=== PATIENT | female | born 1955 | race Caucasian/White ===

== ENCOUNTER 2016-12-15 13:59 | Emergency (ER) | payer MEDICAID, OTHER ==
[2016-12-15 14:08] VITALS: BP 138/80; PULSE 85; RESP 18; TEMP 98.4
--- NOTE | 2016-12-15 14:28 | ED ---
General Adult HPI - General Chief complaint: [place]lestick/Exposure Stated complaint: [facility] Time Seen by Provider: 12/15/16 14:10 Source: patient, RN notes reviewed Mode of arrival: ambulatory Limitations: no limitations - History of Present Illness Initial comments: 61-year-old female presents emergency Department chief complaint of blood exposure to left eye. Patient states she was taking the cut off of the ultrasound probe and it sprayed out and hit her left eye. Patient states she immediately went to the eye wash station and rinsed her eye multiple times. She states that she is recommended that she removed her contact as well as thoroughly rinsed this. Patient states that there was no other exposure. She is up-to-date on her immunizations. The source is here in the hospital. 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 Patient denies any recent fever, chills, shortness of breath, chest pain, back pain, abdominal pain, nausea vomiting, numbness or tingling, dysuria or hematuria, constipation or diarrhea, headaches or visual changes, or any other current symptoms. - Related Data Allergies Allergy/AdvReac Type Severity Reaction Status Date / Time codeine AdvReac Nausea & Verified 12/15/16 14:24 Vomiting Review of Systems ROS Statement: Those systems with pertinent positive or pertinent negative responses have been documented in the HPI. ROS Other: All systems not noted in ROS Statement are negative. Past Medical History Past Medical History: No Reported History History of Any Multi-Drug Resistant Organisms: None Reported Past Surgical History: Adenoidectomy, Section, Cholecystectomy, Tonsillectomy, Tubal Ligation Additional Past Surgical History / Comment(s): right rotator cuff Past Psychological History: No Psychological Hx Reported Smoking Status: Never smoker Past Alcohol Use History: Occasional Past Drug Use History: None Reported General Exam Limitations: no limitations General appearance: alert, in no apparent distress Head exam: Present: atraumatic, normocephalic, normal inspection Eye exam: Present: normal appearance, PERRL, EOMI. Absent: scleral icterus, conjunctival injection, periorbital swelling ENT exam: Present: normal exam, mucous membranes moist Neck exam: Present: normal inspection. Absent: tenderness, meningismus, lymphadenopathy Respiratory exam: Present: normal lung sounds bilaterally. Absent: respiratory distress, wheezes, rales, rhonchi, stridor Cardiovascular Exam: Present: regular rate, normal rhythm, normal heart sounds. Absent: systolic murmur, diastolic murmur, rubs, gallop, clicks Extremities exam: Present: normal inspection, full ROM, normal capillary refill. Absent: tenderness, pedal edema, joint swelling, calf tenderness Neurological exam: Present: alert, oriented X3 Psychiatric exam: Present: normal affect, normal mood Skin exam: Present: warm, dry, intact, normal color. Absent: rash Course Vital Signs 12/15/16 14:02 Temperature 98.4 F Pulse Rate 85 Respiratory 18 Rate Blood Pressure 138/80 O2 Sat by Pulse 96 Oximetry Medical Decision Making - Medical Decision Making 61-year-old female presents emergency 5 chief complaint of exposure. She thoroughly active washrag the eyewash station. At this time exam is benign. We discussed follow-up for the blood work. We discussed return parameters all the questions very state Dre management plan. All questions have been answered. They will be discharged. Disposition Clinical Impression: Exposure to blood-borne pathogen Disposition: HOME SELF-CARE Condition: Stable Instructions: Body Substance Exposure (ED) Additional Instructions: Please use medication as discussed. Please follow up with family doctor if symptoms have not improved over the next two days. Please return to the emergency room if your symptoms increase or worsen or for any other concerns. Referrals: Yaya Pugh MD [Primary Care Provider] - 1-2 days Time of Disposition: 14:28
== END 2016-12-15 14:44 | disposition home or self-care (01) ==
LOC: EC 13:59
DX: Z77.21 Contact with and (suspected) exposure to potentially hazardous body fluids (principal); Z88.5 Allergy status to narcotic agent; Y92.69 Other specified industrial and construction area as the place of occurrence of the external cause
CPT/HCPCS: 99282

== ENCOUNTER → 2017-03-17 | Outpatient (CLI) | payer MEDICAID ==
[2017-03-17 12:00] LABS: ALT 38 U/L (9-52); AST 29 U/L (14-36); Albumin 4.5 g/dL (3.5-5.0); Alkaline Phosphatase 86 U/L (38-126); Anion Gap 10 mmol/L; Blood Urea Nitrogen 12 mg/dL (7-17); Calcium 9.8 mg/dL (8.4-10.2); Carbon Dioxide 27 mmol/L (22-30); Chloride 106 mmol/L (98-107); Cholesterol 275 mg/dL (<200); Glucose 92 mg/dL (74-99); HDL Cholesterol 58 mg/dL (40-60); LDL Cholesterol,Calculated 179 mg/dL (0-99); Potassium 4.7 mmol/L (3.5-5.1); Sodium 143 mmol/L (137-145); Total Bilirubin 0.4 mg/dL (0.2-1.3); Total Protein 6.9 g/dL (6.3-8.2); Triglycerides 192 mg/dL (<150)
[2017-03-17 12:09] LABS: Basophils # (A) 0.1 k/uL (0-0.2); Basophils % (A) 1 %; Eosinophils # (A) 0.3 k/uL (0-0.7); Eosinophils % (A) 6 %; HCT 43.4 % (34.0-46.0); HGB 13.8 gm/dL (11.4-16.0); Lymphocytes # (A) 1.4 k/uL (1.0-4.8); Lymphocytes % (A) 27 %; MCH 28.8 pg (25.0-35.0); MCHC 31.9 g/dL (31.0-37.0); MCV 90.4 fL (80.0-100.0); Mean Platelet Volume 7.6; Monocytes # (A) 0.4 k/uL (0-1.0); Monocytes % (A) 8 %; Neutrophils # (A) 2.9 k/uL (1.3-7.7); Neutrophils % (A) 56 %; Platelet Count 285 k/uL (150-450); RDW 13.5 % (11.5-15.5); WBC 5.2 k/uL (3.8-10.6)
[2017-03-17 12:16] LABS: T4, Free (Free Thyroxine) 0.77 ng/dL (0.78-2.19)
[2017-03-17 21:42] LABS: Hemoglobin A1C 5.5 % (4.0-6.0)
== END | disposition home or self-care (01) ==
LOC: LABWHC1 10:36
PROVIDERS: ATTEND Internal Medicine
DX: E78.5 Hyperlipidemia, unspecified (principal); E03.9 Hypothyroidism, unspecified; E55.9 Vitamin D deficiency, unspecified; R73.01 Impaired fasting glucose
CPT/HCPCS: 36415; 80053; 80061; 82306; 83036; 84439; 84443; 84481; 85025

== ENCOUNTER → 2017-05-26 | Outpatient (CLI) | payer MEDICAID ==
--- NOTE | 2017-05-26 13:08 | MM ---
Reason for exam: screening (asymptomatic). Last mammogram was performed 1 year and 4 months ago. History: Patient is postmenopausal. Family history of breast cancer in aunt at age 68. Benign cyst aspiration of the left breast, 1985. Physical Findings: Nurse did not find any significant physical abnormalities on exam. MG 3D Screening Mammo W/Cad Bilateral CC and MLO view(s) were taken. Prior study comparison: January 30, 2016, bilateral MG 3d screening mammo w/cad. January 31, 2013, bilateral digital screening mammo w/CAD. There are scattered fibroglandular densities. There are bilateral 2mm masses in the upper outer quadrant on the right breast and upper inner quadrant on the left breast. No suspicious abnormality. No significant changes when compared with prior studies. ASSESSMENT: Benign, BI-RAD 2 RECOMMENDATION: Routine screening mammogram of both breasts in 1 year.
== END | disposition home or self-care (01) ==
LOC: RADMAMWWP 12:12
PROVIDERS: ATTEND Internal Medicine
DX: Z12.31 Encounter for screening mammogram for malignant neoplasm of breast (principal)
CPT/HCPCS: 77063; 77067

== ENCOUNTER → 2019-11-08 | Outpatient (CLI) | payer MEDICAID ==
--- NOTE | 2019-11-08 11:36 | MM ---
Reason for exam: screening (asymptomatic). Last mammogram was performed 2 years and 5 months ago. History: Patient is postmenopausal. Family history of breast cancer in aunt at age 68. Benign cyst aspiration of the left breast, 1985. Physical Findings: A clinical breast exam by your physician is recommended on an annual basis and results should be correlated with mammographic findings. MG 3D Screening Mammo W/Cad Bilateral CC and MLO view(s) were taken. Prior study comparison: May 26, 2017, bilateral MG 3d screening mammo w/cad. January 30, 2016, bilateral MG 3d screening mammo w/cad. There are scattered fibroglandular densities. No significant changes when compared with prior studies. ASSESSMENT: Negative, BI-RAD 1 RECOMMENDATION: Routine screening mammogram of both breasts in 1 year.
== END | disposition home or self-care (01) ==
LOC: RADMAMWWP 11:12
PROVIDERS: ATTEND Nurse Practitioner Adult Health
DX: Z12.31 Encounter for screening mammogram for malignant neoplasm of breast (principal)
CPT/HCPCS: 77063; 77067

== ENCOUNTER → 2020-05-25 | Outpatient (CLI) | payer MEDICAID ==
[2020-05-25 11:48] LABS: African American GFR (CKD) 78.9 (60.0-200.0); Anion Gap 6.1 mmol/L (4.00-12.00); BUN/Creat Ratio 14.44 Ratio (12.00-20.00); Calcium 9.5 mg/dL (8.7-10.3); Carbon Dioxide 27.9 mmol/L (21.6-31.8); Chol/HDL Ratio 4.08; Potassium 4.5 mmol/L (3.5-5.5)
[2020-05-25 14:57] LABS: Hemoglobin A1C 5.6 % (4.0-6.0)
== END | disposition home or self-care (01) ==
LOC: LABWHC1 06:51
PROVIDERS: ATTEND Nurse Practitioner Adult Health
DX: Z00.00 Encounter for general adult medical examination without abnormal findings (principal); E78.2 Mixed hyperlipidemia; R73.9 Hyperglycemia, unspecified
CPT/HCPCS: 36415; 80048; 80061; 83036; 84443

== ENCOUNTER 2020-12-24 07:31 | Emergency (ER) | payer MEDICAID ==
[2020-12-24 07:37] VITALS: RESP 18; TEMP 98
[2020-12-24] MEDS ORDERED: SODIUM CHLORIDE 0.9% 1,000 ML IV STA (07:54)
[2020-12-24] MEDS ORDERED: KETOROLAC 15 MG/ML 1 ML VIAL IVP STA (07:54)
[2020-12-24] MEDS ORDERED: diphenhydrAMINE 25 MG CAP PO STA (07:55)
[2020-12-24] MEDS ORDERED: PROCHLORPERAZINE INJ 10 MG/2 ML VIAL IVP STA (07:55)
--- NOTE | 2020-12-24 08:07 | ED ---
General Adult HPI - General Chief complaint: Abdominal Pain Stated complaint: headache x3 days Time Seen by Provider: 12/24/20 07:41 Source: patient, RN notes reviewed, old records reviewed Mode of arrival: ambulatory Limitations: no limitations - History of Present Illness Initial comments: Patient is a 65-year-old female with no significant medical prompted presents emergency Department complaining of constipation fro 3 days. She is also complaining of lower abdominal pain in the bilateral quadrants that is crampy in nature and is nonradiating. Denies any urinary complaints or vaginal discharge or bleeding. States she still passing gas and did have a bowel movement that was nonbloody this morning secondary to Fleet enema. Denies any nausea or vomiting except after she took milk of magnesia. Denies any chest pain, shortness of breath, fevers, chills, cough. Patient does endorse a mild 5/10 headache over the last few days as well. She describes as a typical headache that is in a belt distribution around her head. She has no neurological complaints associated with headache. She denies any blurry vision or lightheadedness. Attempted to take some Tylenol this morning with minimal improvement. She otherwise has no acute complaints at this time. She has multiple concerns, first of which the abdominal pain that because she has been snacking more on a granola and nuts, she is concerned for possible diverticulosis or diverticulitis. Denies any fevers or chills. Patient also works in the healthcare industry and due to her headache, she would like a Covid test she can return to work. Patient is vaccinated for COVID. - Related Data Previous Rx's Medication Instructions Recorded Amoxicillin/Potassium Clav 1 tab PO Q12HR 10 Days #20 tab 12/24/20 [Augmentin 875-125 Tablet] Ibuprofen [Motrin] 600 mg PO Q6HR PRN 7 Days #28 tab 12/24/20 Ondansetron Odt [Zofran Odt] 4 mg PO Q8HR PRN 2 Days #6 tab 12/24/20 Allergies Allergy/AdvReac Type Severity Reaction Status Date / Time codeine AdvReac Nausea & Verified 12/24/20 07:37 Vomiting Review of Systems ROS Statement: Those systems with pertinent positive or pertinent negative responses have been documented in the HPI. Review of Systems: CONST: Denies fever EYES: Denies blurry vision ENT: Denies nasal congestion C/V: Denies Chest pain RESP: Denies shortness of breath GI: Endorses abdominal pain : Denies dysuria SKIN: Denies rash. MSK: Denies joint pain. NEURO: Denies headache ROS Other: All systems not noted in ROS Statement are negative. Past Medical History Past Medical History: No Reported History History of Any Multi-Drug Resistant Organisms: None Reported Past Surgical History: Adenoidectomy, Section, Cholecystectomy, Tonsillectomy, Tubal Ligation Additional Past Surgical History / Comment(s): right rotator cuff Past Psychological History: No Psychological Hx Reported Smoking Status: Never smoker Past Alcohol Use History: Occasional Past Drug Use History: None Reported General Exam - General Exam Comments Initial Comments: General: Appears in mild discomfort secondary to abdominal pain. HEAD: Normal with no signs of head trauma. EYES: PERRLA, EOMI, conjunctiva normal, no discharge. ENT: Hearing grossly intact, normal oropharynx. RESPIRATORY: Clear breath sounds bilaterally. No wheezes, rales, or rhonchi. C/V: Regular rate and rhythm. S1 and S2 auscultated, no edema, peripheral pulses 2+ and intact throughout ABD: Soft, nondistended. Patient does have tenderness palpation in the bilateral lower quadrants and suprapubic region. There is no tenderness to palpation upper quadrants. There is no guarding. No peritoneal signs. No rebound tenderness. No CVA tenderness to percussion. No flank tenderness. EXT: Normal range of motion, no obvious deformity SKIN: No rashes or lesions observed on exposed skin. NEURO: Alert and oriented x 4. Cranial nerves II-XII intact. No focal sensory or strength deficits. Limitations: no limitations Course Vital Signs 12/24/20 12/24/20 07:34 09:17 Temperature 98.0 F Pulse Rate 95 Respiratory 18 18 Rate Blood Pressure 124/80 O2 Sat by Pulse 95 Oximetry Medical Decision Making - Medical Decision Making This on the patient's presentation and physical exam, I'm concerned for possible acute intra-abdominal process for the patient. She could be going through about constipation but due to the pain as well as recent nut ingestion, I believe that concern over diverticulosis or diverticulitis is reasonable based on where her pain is located. We discussed and agreed that the patient would like a CT abdomen and pelvis. We will obtain basic laboratory studies. We'll also obtain a urinalysis. Due to the patient's headache, she'll be sent likely treatment with a 1 L fluid bolus, IV Toradol, Compazine as well as by mouth Benadryl she drove today. She was in agreement this plan. We will also obtain a Covid 19 swab so she can return to work on Thursday. She was vaccinated. Patient's laboratory studies are remarkable for a mild leukocytosis of 13. Remainder of her labs are unremarkable. Patient's Covid negative. CT of abdomen and pelvis is remarkable for acute diverticulitis involving the mid and distal sigmoid colon with inflammation and some mild pelvic free fluid which is likely reactive. His no abscess or free air. Findings are also concerning for possible developing fistula and/or cancer which they recommend repeat CT imaging following treatment for diverticulitis. No acute intervention at this time. I discussed the findings with the patient. She is tolerating by mouth intake. I believe it is safer to be discharged home with follow-up with surgery. She was in agreement this plan. She already has follow-up established with Dr. Cruz. Her headache is improved at this time as well. I'll provide her with a dose of Augmentin prior to discharge home. She was in agreement this plan. I will provide the patient with a prescription for Augmentin twice a day for 10 days, David GARCIA. I instructed the patient to follow up with their PCP in the next 3 days. I provided contact information for follow up with Dr. Cruz. I explained that the patient should return to the emergency department if they experience any worsening symptoms. Strict return precautions were discussed with the patient. The patient expressed understanding of these instructions. I answered all questions that the patient had. The patient was discharged home in fair condition with their prescriptions and follow up information. - Lab Data Result diagrams: 12/24/20 08:21 12/24/20 08:21 Lab Results 12/24/20 12/24/20 12/24/20 Range/Units 08:21 08:21 08:21 WBC 13.0 H (3.8-10.6) k/uL RBC 4.78 (3.80-5.40) m/uL Hgb 14.2 (11.4-16.0) gm/dL Hct 43.1 (34.0-46.0) % MCV 90.2 (80.0-100.0) fL MCH 29.8 (25.0-35.0) pg MCHC 33.0 (31.0-37.0) g/dL RDW 12.5 (11.5-15.5) % Plt Count 265 (150-450) k/uL MPV 7.1 Neutrophils % 83 % Lymphocytes % 7 % Monocytes % 7 % Eosinophils % 1 % Basophils % 0 % Neutrophils # 10.8 H (1.3-7.7) k/uL Lymphocytes # 0.9 L (1.0-4.8) k/uL Monocytes # 0.9 (0-1.0) k/uL Eosinophils # 0.1 (0-0.7) k/uL Basophils # 0.0 (0-0.2) k/uL PT 9.7 (9.0-12.0) sec INR 0.9 (<1.2) APTT 23.6 (22.0-30.0) sec Sodium (137-145) mmol/L Potassium (3.5-5.1) mmol/L Chloride (98-107) mmol/L Carbon Dioxide (22-30) mmol/L Anion Gap mmol/L BUN (7-17) mg/dL Creatinine (0.52-1.04) mg/dL Est GFR (CKD-EPI)AfAm (>60 ml/min/1.73 sqM) Est GFR (CKD-EPI)NonAf (>60 ml/min/1.73 sqM) Glucose (74-99) mg/dL Plasma Lactic Acid Carmelo (0.7-2.0) mmol/L Calcium (8.4-10.2) mg/dL Total Bilirubin (0.2-1.3) mg/dL AST (14-36) U/L ALT (4-34) U/L Alkaline Phosphatase (38-126) U/L Total Protein (6.3-8.2) g/dL Albumin (3.5-5.0) g/dL Amylase (30-110) U/L Lipase (23-300) U/L Urine Color Yellow Urine Appearance Clear (Clear) Urine pH 6.0 (5.0-8.0) Ur Specific [place] 1.029 (1.001-1.035) Urine Protein Trace H (Negative) Urine Glucose (UA) Negative (Negative) Urine Ketones Negative (Negative) Urine Blood Negative (Negative) Urine Nitrite Negative (Negative) Urine Bilirubin Negative (Negative) Urine Urobilinogen <2.0 (<2.0) mg/dL Ur Leukocyte Esterase Negative (Negative) Coronavirus (PCR) (Not Detectd) 12/24/20 12/24/20 12/24/20 Range/Units 08:21 08:21 08:21 WBC (3.8-10.6) k/uL RBC (3.80-5.40) m/uL Hgb (11.4-16.0) gm/dL Hct (34.0-46.0) % MCV (80.0-100.0) fL MCH (25.0-35.0) pg MCHC (31.0-37.0) g/dL RDW (11.5-15.5) % Plt Count (150-450) k/uL MPV Neutrophils % % Lymphocytes % % Monocytes % % Eosinophils % % Basophils % % Neutrophils # (1.3-7.7) k/uL Lymphocytes # (1.0-4.8) k/uL Monocytes # (0-1.0) k/uL Eosinophils # (0-0.7) k/uL Basophils # (0-0.2) k/uL PT (9.0-12.0) sec INR (<1.2) APTT (22.0-30.0) sec Sodium 135 L (137-145) mmol/L Potassium 4.4 (3.5-5.1) mmol/L Chloride 105 (98-107) mmol/L Carbon Dioxide 20 L (22-30) mmol/L Anion Gap 10 mmol/L BUN 8 (7-17) mg/dL Creatinine 0.67 (0.52-1.04) mg/dL Est GFR (CKD-EPI)AfAm >90 (>60 ml/min/1.73 sqM) Est GFR (CKD-EPI)NonAf >90 (>60 ml/min/1.73 sqM) Glucose 125 H (74-99) mg/dL Plasma Lactic Acid Carmelo 0.6 L (0.7-2.0) mmol/L Calcium 10.1 (8.4-10.2) mg/dL Total Bilirubin 0.8 (0.2-1.3) mg/dL AST 35 (14-36) U/L ALT 20 (4-34) U/L Alkaline Phosphatase 96 (38-126) U/L Total Protein 7.2 (6.3-8.2) g/dL Albumin 4.2 (3.5-5.0) g/dL Amylase 59 (30-110) U/L Lipase 70 (23-300) U/L Urine Color Urine Appearance (Clear) Urine pH (5.0-8.0) Ur Specific [place] (1.001-1.035) Urine Protein (Negative) Urine Glucose (UA) (Negative) Urine Ketones (Negative) Urine Blood (Negative) Urine Nitrite (Negative) Urine Bilirubin (Negative) Urine Urobilinogen (<2.0) mg/dL Ur Leukocyte Esterase (Negative) Coronavirus (PCR) Not Detected (Not Detectd) Disposition Clinical Impression: Diverticulitis, Headache Disposition: HOME SELF-CARE Condition: Fair Instructions (If sedation given, give patient instructions): Diverticulitis (ED) Prescriptions: Amoxicillin/Potassium Clav [Augmentin 875-125 Tablet] 1 tab PO Q12HR 10 Days #20 tab Ibuprofen [Motrin] 600 mg PO Q6HR PRN 7 Days #28 tab PRN Reason: Pain Ondansetron Odt [Zofran Odt] 4 mg PO Q8HR PRN 2 Days #6 tab PRN Reason: Nausea Is patient prescribed a controlled substance at d/c from ED?: No Referrals: Jordin Cavazos MD [Primary Care Provider] - 1-2 days Jose M Cruz MD [Medical Doctor] - 1-2 days
[2020-12-24 08:40] LABS: Basophils % (A) 0 %; Eosinophils # (A) 0.1 k/uL (0-0.7); Eosinophils % (A) 1 %; HCT 43.1 % (34.0-46.0); HGB 14.2 gm/dL (11.4-16.0); Lymphocytes # (A) 0.9 k/uL (1.0-4.8); Lymphocytes % (A) 7 %; MCH 29.8 pg (25.0-35.0); MCV 90.2 fL (80.0-100.0); Mean Platelet Volume 7.1; Monocytes # (A) 0.9 k/uL (0-1.0); Monocytes % (A) 7 %; Neutrophils # (A) 10.8 k/uL (1.3-7.7); Neutrophils % (A) 83 %; Platelet Count 265 k/uL (150-450); RBC 4.78 m/uL (3.80-5.40); RDW 12.5 % (11.5-15.5)
[2020-12-24 08:43] LABS: Appearance,Urine Clear (Clear); Bilirubin,Urine Negative (Negative); Blood,Urine Negative (Negative); Color,Urine Yellow; Glucose,Urine (UA) Negative (Negative); Ketones,Urine Negative (Negative); Leukocyte Esterase,Urine Negative (Negative); Nitrite,Urine Negative (Negative); Protein,Urine Trace (Negative); Specific Gravity,Urine 1.029 (1.001-1.035); Urobilinogen,Urine <2.0 mg/dL (<2.0)
[2020-12-24 08:51] LABS: INR 0.9 (<1.2); Partial Thromboplastin Time 23.6 sec (22.0-30.0); Prothrombin Time 9.7 sec (9.0-12.0)
[2020-12-24 09:19] LABS: ALT 20 U/L (4-34); AST 35 U/L (14-36); African American GFR (CKD) >90 (>60 ml/min/1.73 sqM); Albumin 4.2 g/dL (3.5-5.0); Alkaline Phosphatase 96 U/L (38-126); Amylase 59 U/L (30-110); Anion Gap 10 mmol/L; Blood Urea Nitrogen 8 mg/dL (7-17); Calcium 10.1 mg/dL (8.4-10.2); Carbon Dioxide 20 mmol/L (22-30); Chloride 105 mmol/L (98-107); Glucose 125 mg/dL (74-99); Lipase 70 U/L (23-300); Non-African American GFR(CKD) >90 (>60 ml/min/1.73 sqM); Potassium 4.4 mmol/L (3.5-5.1); Sodium 135 mmol/L (137-145); Total Bilirubin 0.8 mg/dL (0.2-1.3); Total Protein 7.2 g/dL (6.3-8.2)
--- NOTE | 2020-12-24 09:27 | CT ---
EXAMINATION TYPE: CT abdomen pelvis w con DATE OF EXAM: 12/24/2020 COMPARISON: NONE HISTORY: 65-year-old female Lower abdominal pain with headache TECHNIQUE: Contiguous axial scanning of the abdomen and pelvis following administration of 100 ml Iso hieu 300 IV contrast. Delayed images through the kidneys and coronal/sagittal reconstructions perform ed. CT DLP: 984.8 mGycm Automated exposure control for dose reduction was used. FINDINGS: Heart normal size without pericardial effusion. Strandy atelectasis in the lower lungs. No pleural ef fusion. No focal liver lesion or biliary ductal dilatation. Portal venous system is patent. Cholecystectomy c lips. Adrenal glands, spleen with small anterior splenule, pancreas within normal limits. Bilateral extrarenal pelves. 1 cm cortical cyst medial upper pole left kidney. No dilated small bowel, free fluid, or free air. However, prominent fluid-filled small bowel loops ar e present throughout the abdomen. No mesenteric or retroperitoneal lymphadenopathy. Normal appendix. Mild stool burden. There is sigmoid diverticulosis. Moderate wall thickening involvi ng the mid to distal sigmoid colon with surrounding inflammatory fat stranding and edema. Some linear density projecting posteriorly from the mid sigmoid colon to the anterior margin of the distal sigmo id colon, axial image 70 and 71 and sagittal image 66 reassessed at follow-up. Trace pelvic free fluid likely physiologic. Pelvic phleboliths. Uterus anteverted. Both ovaries are v isualized. No pelvic lymphadenopathy seen. Bones: Mild to moderate degenerative disc disease L5-S1. IMPRESSION: 1. EXAM POSITIVE FOR ACUTE DIVERTICULITIS INVOLVING THE MID AND DISTAL SIGMOID COLON. THERE IS MODERA TE INFLAMMATION AND TRACE PELVIC FREE FLUID WHICH IS LIKELY REACTIVE. NO ABSCESS OR FREE AIR. 2. LINEAR STRANDS AND DENSITY EXTENDING POSTERIORLY FROM THE INFLAMED MID SIGMOID TO THE ANTERIOR MAR GIN OF THE DISTAL SIGMOID (FOR EXAMPLE, SAGITTAL IMAGE 66). RECOMMEND FOLLOW-UP CT AFTER TREATMENT TO EXCLUDE DEVELOPING FISTULA. DIRECT VISUALIZATION WILL ALSO BE RECOMMENDED TO EXCLUDE THE POSSIBILITY AN UNDERLYING INFLAMMATORY COLON CANCER.
[2020-12-24] MEDS ORDERED: AMOXIC-POT CLAV 875-125MG 1 EACH TAB PO STA (09:53)
[2020-12-24 10:55] VITALS: BP 142/75; PULSE 90
== END 2020-12-24 11:00 | disposition home or self-care (01) ==
LOC: EC 07:31
DX: K57.92 Diverticulitis of intestine, part unspecified, without perforation or abscess without bleeding (principal); R51.9 Headache, unspecified; Z20.822 Contact with and (suspected) exposure to COVID-19; Z88.5 Allergy status to narcotic agent; Z90.49 Acquired absence of other specified parts of digestive tract; Z98.51 Tubal ligation status
CPT/HCPCS: 99284; 96374; 96375; 96361; 36415; 80053; 82150; 83605; 83690; 85025; 85610; 85730; 81003; 87635; 74177; J0780; J1885; Q9967

== ENCOUNTER → 2021-02-08 | Outpatient (CLI) | payer MEDICAID ==
--- NOTE | 2021-02-10 18:46 | CT ---
EXAMINATION TYPE: CT abdomen pelvis w con DATE OF EXAM: 02/08/2021 COMPARISON: 12/24/2020 HISTORY: 65 year-old female K57.32, acute diverticulitis TECHNIQUE: Contiguous axial scanning of the abdomen and pelvis following administration of 100 ml Iso hieu 300 IV contrast. Delayed images through the kidneys and coronal/sagittal reconstructions perform ed. CT DLP: 628.9 mGycm Automated exposure control for dose reduction was used. FINDINGS: Heart normal size without pericardial effusion. Dependent atelectasis in the lower lungs. No pleural effusions. No focal liver lesion or biliary ductal dilatation; portal venous system is patent. Adrenal glands, spleen, and pancreas within normal limits. There is a small 1.7 cm diverticulum extending superiorly from the third portion duodenum. Kidneys show bilateral extrarenal pelves. Symmetric uptake and excretion of contrast from both kidney s. Small 8 mm cyst medial upper pole left kidney incidentally noted. No dilated small bowel, free fluid, or free air. A couple small retroperitoneal lymph nodes are uncha nged. Borderline size 7 mm right mesenteric lymph node is unchanged. Normal appendix. Oral contrast progressed to the mid transverse colon. There is moderate stool burden . Interval resolution of the inflammatory changes along the mid to distal sigmoid colon and significant improvement in the previously seen colonic wall thickening. No appreciable fistula tract or suspicio us masslike area of mural thickening is identified. Numerous pelvic phlebolith. Bladder is urine distended. Uterus anteverted. Both ovaries are visualize d. No abnormal fluid collection in the pelvis or pelvic lymphadenopathy. Bones: Mild to moderate degenerative disc disease L5-S1. Mild facet arthropathy lower lumbar spine. IMPRESSION: INTERVAL RESOLUTION OF THE PREVIOUS MID TO DISTAL SIGMOID ACUTE DIVERTICULITIS. THERE IS NO RESIDUAL DISCRETE FISTULOUS COMMUNICATION OR SUSPICIOUS MASSLIKE WALL THICKENING IDENTIFIED.
== END | disposition home or self-care (01) ==
LOC: RADCTMAIN 07:24
PROVIDERS: ATTEND Internal Medicine
DX: K57.32 Diverticulitis of large intestine without perforation or abscess without bleeding (principal)
CPT/HCPCS: 74177; Q9967

== ENCOUNTER 2021-03-05 09:27 | Day surgery (SDC) | payer MEDICAID ==
[2021-02-27 14:43] VITALS: BMI 27.1
[~2021-03-05 09:27] MED LIST: LACTATED RINGERS 1,000 ML IV SCH; LIDOCAINE 1% (10MG/ML) FOR IV START INTRADERMA PRN
[2021-03-05 09:42] VITALS: TEMP 97.8
[2021-03-05] MEDS ORDERED: LACTATED RINGERS 1,000 ML IV ONE (09:42)
[2021-03-05] MEDS ORDERED: PROPOFOL 10 MG/ML 20 ML VIAL IV ONE (10:26)
--- NOTE | 2021-03-05 10:30 | P.GSHP ---
History of Present Illness H&P Date: 03/05/21 Chief Complaint: Diverticulitis, change in bowel habits 65-year-old female here today for colonoscopy. Patient had recent episode of diverticulitis in December. Doing better now. She has had intermittent diarrhea and constipation. Recently found that she was ALLERGIC corn products. She also is having some pain in the left perianal location. She thinks she has a fissure. Last colonoscopy 6 years ago was normal. No family history of colon cancer. Past Medical History Past Medical History: No Reported History Additional Past Medical History / Comment(s): Diverticulosis, sinus infection. Allergic to corn & develops a sinus infection. History of Any Multi-Drug Resistant Organisms: None Reported Past Surgical History: Adenoidectomy, Section, Cholecystectomy, Tonsillectomy, Tubal Ligation Additional Past Surgical History / Comment(s): right rotator cuff Past Anesthesia/Blood Transfusion Reactions: Postoperative Nausea & Vomiting (PONV) Smoking Status: Never smoker - Past Family History Mother Family Medical History: No Reported History Medications and Allergies Home Medications Medication Instructions Recorded Confirmed Type Ascorbic Acid [Vitamin C] 500 mg PO DAILY 02/27/21 02/27/21 History Azithromycin [Zithromax Z-pack (6 0 mg PO DIRECTED 02/27/21 02/27/21 History tabs)] Cholecalciferol [Vitamin D3 (10 1 tab PO DAILY 02/27/21 02/27/21 History Mcg = 400 Iu)] Fish Oil/Dha/Epa [Fish Oil 1,200 1 each PO DAILY 02/27/21 02/27/21 History mg Fish Oil] Ibuprofen [Advil] 200 mg PO Q8HR PRN 02/27/21 02/27/21 History L.acidoph,Paracasei, B.lactis 1 each PO DAILY 02/27/21 02/27/21 History [Probiotic] Vitamin A [Vitamin A (8,000 Units 2,400 mcg PO DAILY 02/27/21 02/27/21 History = 2,400 MCG)] Vitamin E [Vitamin E (1000 Iu = 1,000 unit PO DAILY 02/27/21 02/27/21 History 450 MG)] Allergies Allergy/AdvReac Type Severity Reaction Status Date / Time amoxicillin Allergy Rash/Hives Verified 02/27/21 14:52 corn AdvReac Severe sinus Verified 02/27/21 14:52 infections clavulanic acid AdvReac Rash/Hives Verified 02/27/21 14:52 [From Augmentin] codeine AdvReac Nausea & Verified 02/27/21 14:12 Vomiting steroids Allergy Unknown Uncoded 02/27/21 14:52 Surgical - Exam Vital Signs Temp Pulse Resp BP Pulse Ox 97.8 F 77 18 140/75 99 03/05/21 09:41 03/05/21 09:41 03/05/21 09:41 03/05/21 09:41 03/05/21 09:41 Physical exam: General: Well-developed, well-nourished HEENT: Normocephalic, sclerae nonicteric Abdomen: Nontender, nondistended Extremities: No edema Neuro: Alert and oriented Assessment and Plan (1) Diverticulitis Narrative/Plan: Will proceed with colonoscopy. Current Visit: Yes Status: Acute Code(s): K57.92 - DVTRCLI OF INTEST, PART UNSP, W/O PERF OR ABSCESS W/O BLEED SNOMED Code(s): 911591446
--- NOTE | 2021-03-05 10:52 | P.PCN ---
Date of Procedure: 03/05/21 Procedure(s) Performed: PREOPERATIVE DIAGNOSIS: Diverticulitis POSTOPERATIVE DIAGNOSIS: Extensive diverticulosis with tortuosity PROCEDURE: Colonoscopy ANESTHESIA: MAC SURGEON: Jose M Cruz M.D. SPECIMENS: None ENDOSCOPIC PROCEDURE: The patient was placed on the endoscopy table in the left decubitus position. The Olympus colonoscope was inserted into the anus and passed under direct visualization to the base of the cecum. The appendiceal orifice was visualized. From that point the scope was slowly withdrawn inspecting all surfaces carefully. There were no neoplastic inflammatory or polypoid lesions throughout the cecum, ascending, transverse, descending, sigmoid and rectum. There was extensive left-sided diverticulosis noted with tortuosity. Digital rectal examination was normal. The patient was taken to the recovery room in stable condition per anesthesia guidelines. RECOMMENDATIONS: Resume diet. Follow-up colonoscopy in 10 years.
[2021-03-05 11:01] VITALS: RESP 16
[2021-03-05 11:30] VITALS: BP 130/77; PULSE 64
== END 2021-03-05 11:55 | disposition home or self-care (01) ==
LOC: ORWHC2ENDO 09:27
PROVIDERS: ATTEND Surgery
DX: K57.30 Diverticulosis of large intestine without perforation or abscess without bleeding (principal); R19.7 Diarrhea, unspecified; K59.00 Constipation, unspecified; K62.89 Other specified diseases of anus and rectum; J32.9 Chronic sinusitis, unspecified; Z91.018 Allergy to other foods; Z88.5 Allergy status to narcotic agent; Z88.0 Allergy status to penicillin; Z88.8 Allergy status to other drugs, medicaments and biological substances; Z90.89 Acquired absence of other organs; Z98.891 History of uterine scar from previous surgery; Z90.49 Acquired absence of other specified parts of digestive tract; Z98.51 Tubal ligation status; Z98.890 Other specified postprocedural states
CPT/HCPCS: 45378; J2704

== ENCOUNTER → 2021-05-09 | Outpatient (CLI) | payer MEDICAID ==
--- NOTE | 2021-05-09 13:56 | MM ---
Reason for exam: screening (asymptomatic). Last mammogram was performed 1 year and 6 months ago. History: Patient is postmenopausal. Family history of breast cancer in aunt at age 68. Benign cyst aspiration of the left breast, 1985. Physical Findings: A clinical breast exam by your physician is recommended on an annual basis and results should be correlated with mammographic findings. MG 3D Screening Mammo W/Cad Bilateral CC and MLO view(s) were taken. Prior study comparison: November 08, 2019, bilateral MG 3d screening mammo w/cad. May 26, 2017, bilateral MG 3d screening mammo w/cad. There are scattered fibroglandular densities. There is no discrete abnormality. No significant changes when compared with prior studies. ASSESSMENT: Negative, BI-RAD 1 RECOMMENDATION: Routine screening mammogram of both breasts in 1 year.
== END ==
LOC: RADMAMWWP 11:47
PROVIDERS: ATTEND Family Medicine
DX: Z12.31 Encounter for screening mammogram for malignant neoplasm of breast (principal); Z78.0 Asymptomatic menopausal state; Z80.3 Family history of malignant neoplasm of breast
CPT/HCPCS: 77063; 77067

== ENCOUNTER → 2021-05-15 | Outpatient (CLI) | payer MEDICAID ==
--- NOTE | 2021-05-15 16:54 | BD ---
EXAMINATION TYPE: Axial Bone Density DATE OF EXAM: 05/15/2021 COMPARISON: 2007 CLINICAL HISTORY: 65 years year old Female. ICD-10 CODE: Z78.0 POST ANA LAURA, M85.88 OTHER DISORDER OF B ONE Height: 5'3 Weight: 159 FRAX RISK QUESTIONS: Secondary Osteoporosis: RISK FACTORS HISTORY OF: Family History of Osteoporosis: y Postmenopausal woman: y MEDICATIONS: Additional Medications: Additional History: EXAM MEASUREMENTS: Bone mineral densitometry was performed using the StayNTouch System. Bone mineral density as measured about the Lumbar spine is: ----- L1-L4(G/cm2): 1.020 T Score Values are as follows: ----- L1: -1.6 ----- L2: -2.1 ----- L3: -0.9 ----- L4: -0.8 ----- L1-L4: -1.3 Bone mineral density about the R hip (g/cm2): 0.934 Bone mineral density about the L hip (g/cm2): 0.935 T Score values are as follows: -----R Neck: -0.7 -----L Neck: -0.7 -----R Total: 0.7 -----L Total: 0.6 FRAX%s: The graph provided illustrates a chance for a major osteoporotic fx and a chance for the hips probability for fx in 10 years time. IMPRESSION: Osteopenia (T Score between -2.5 and -1). There is slightly increased risk of fracture and the patient may be considered for treatment. Re-Screen 2-5 years. NOTE: T-SCORE=SD OF THE YOUNG ADULT MEAN.
== END | disposition home or self-care (01) ==
LOC: RADBDWWP 07:39
PROVIDERS: ATTEND Family Medicine
DX: M85.88 Other specified disorders of bone density and structure, other site (principal); Z78.0 Asymptomatic menopausal state
CPT/HCPCS: 77080

== ENCOUNTER 2023-04-11 03:02 | Emergency (ER) | payer MEDICARE, BC ==
[2023-04-11 04:15] VITALS: TEMP 98.3
--- NOTE | 2023-04-11 05:10 | ED ---
General Adult HPI - General Chief complaint: ENT Stated complaint: nasal congestion Time Seen by Provider: 04/11/23 04:00 Source: patient, RN notes reviewed, old records reviewed Mode of arrival: ambulatory Limitations: no limitations - History of Present Illness Initial comments: Patient is a 67-year-old female who presents emergency department complaining of sinus congestion. Symptoms have been present for a few days but states she has a history of chronic sinus congestion as well. Left worse over the last few days but has typical symptoms that are recurrent. Denies any cough, fevers, chills. Denies any sore throat. Denies chest pain. No other acute complaints. I evaluated the patient when she was placed in room. - Related Data Home Medications Medication Instructions Recorded Confirmed Ascorbic Acid [Vitamin C] 500 mg PO DAILY 02/27/21 02/27/21 Azithromycin [Zithromax Z-pack (6 0 mg PO DIRECTED 02/27/21 02/27/21 tabs)] Cholecalciferol [Vitamin D3 (10 1 tab PO DAILY 02/27/21 02/27/21 Mcg = 400 Iu)] Fish Oil/Dha/Epa [Fish Oil 1,200 1 each PO DAILY 02/27/21 02/27/21 mg Fish Oil] Ibuprofen [Advil] 200 mg PO Q8HR PRN 02/27/21 02/27/21 L.acidoph,Paracasei, B.lactis 1 each PO DAILY 02/27/21 02/27/21 [Probiotic] Vitamin A [Vitamin A (8,000 Units 2,400 mcg PO DAILY 02/27/21 02/27/21 = 2,400 MCG)] Vitamin E (Dl,Tocopheryl Acet) 1,000 unit PO DAILY 02/27/21 02/27/21 [Vitamin E (1000 Iu = 450 MG)] Previous Rx's Medication Instructions Recorded Azithromycin [Zithromax] 250 mg PO DAILY 4 Days #4 tab 04/11/23 Allergies Allergy/AdvReac Type Severity Reaction Status Date / Time amoxicillin Allergy Rash/Hives Verified 02/27/21 14:52 corn AdvReac Severe sinus Verified 02/27/21 14:52 infections clavulanic acid AdvReac Rash/Hives Verified 02/27/21 14:52 [From Augmentin] codeine AdvReac Nausea & Verified 02/27/21 14:12 Vomiting steroids Allergy Unknown Uncoded 02/27/21 14:52 Review of Systems ROS Statement: Those systems with pertinent positive or pertinent negative responses have been documented in the HPI. Review of Systems: CONST: Denies fever EYES: Denies blurry vision ENT: Endorses sinus congestion C/V: Denies Chest pain RESP: Denies shortness of breath GI: Denies abdominal pain : Denies dysuria SKIN: Denies rash. MSK: Denies joint pain. NEURO: Denies headache ROS Other: All systems not noted in ROS Statement are negative. Past Medical History Past Medical History: No Reported History History of Any Multi-Drug Resistant Organisms: None Reported Past Surgical History: Adenoidectomy, Section, Cholecystectomy, Tonsillectomy, Tubal Ligation Additional Past Surgical History / Comment(s): right rotator cuff Past Psychological History: No Psychological Hx Reported Smoking Status: Never smoker General Exam - General Exam Comments Initial Comments: General: Appears in no acute distress. HEAD: Normal with no signs of head trauma. EYES: EOMI. ENT: Sinus tenderness to palpation bilateral maxillary sinuses. Nasal congestion. No stridor. Posterior oropharynx within acceptable limits. RESPIRATORY: No respiratory distress. No wheeze. Clear breath sounds bilaterally. No hypoxia. C/V: Regular rate and rhythm. ABD: Abdomen is nondistended. EXT: No obvious deformity. SKIN: No rashes or lesions observed on exposed skin. NEURO: Alert and oriented. Limitations: no limitations Course Vital Signs 04/11/23 04/11/23 03:14 05:22 Temperature 98.3 F Pulse Rate 73 75 Respiratory 18 20 Rate Blood Pressure 155/89 159/85 O2 Sat by Pulse 99 99 Oximetry Medical Decision Making - Medical Decision Making Was pt. sent in by a medical professional or institution (, PA, MANAGER OF DATA, urgent care, hospital, or assisted...) When possible be specific @ -No Did you speak to anyone other than the patient for history (EMS, parent, family, police, friend...)? What history was obtained from this source @ -No Did you review nursing and triage notes (agree or disagree)? Why? @ -I reviewed and agree with nursing and triage notes Were old charts reviewed (outside hosp., previous admission, EMS record, old EKG, old radiological studies, urgent care reports/EKG's, assisted records)? Report findings @ -No old charts were reviewed Differential Diagnosis (chest pain, altered mental status, abdominal pain women, abdominal pain men, vaginal bleeding, weakness, fever, dyspnea, syncope, h eadache, dizziness, GI bleed, back pain, seizure, CVA, palpatations, mental health, musculoskeletal)? @ -COVID, flu, RSV, sinus infection. This list is not all inclusive. EKG interpreted by me (3pts min.). @ -None done X-rays interpreted by me (1pt min.). @ -None done CT interpreted by me (1pt min.). @ -None done U/S interpreted by me (1pt. min.). @ -None done What testing was considered but not performed or refused? (CT, X-rays, U/S, labs)? Why? @ -None What meds were considered but not given or refused? Why? @ -I offered steroids which were declined. Did you discuss the management of the patient with other professionals (professionals i.e. , PA, MANAGER OF DATA, lab, RT, psych nurse, social sciences lecturer, certified forklift operator, teacher, media liaison officer, pillowcase cutter)? Give summary @ -No Was smoking cessation discussed for >3mins.? @ -No Was critical care preformed (if so, how long)? @ -No Were there social determinants of health that impacted care today? How? (Homelessness, low income, unemployed, alcoholism, drug addiction, transportation, low edu. Level, literacy, decrease access to med. care, custodial, rehab)? @ -No Was there de-escalation of care discussed even if they declined (Discuss DNR or withdrawal of care, Hospice)? DNR status @ -No What co-morbidities impacted this encounter? (DM, HTN, Smoking, COPD, CAD, Cancer, CVA, ARF, Chemo, Hep., AIDS, mental health diagnosis, sleep apnea, morbid obesity)? @ -None Was patient admitted / discharged? Hospital course, mention meds given and route, prescriptions, significant lab abnormalities, going to OR and other pertinent info. @ -Patient presents with acute on chronic sinus congestion. Also has a mild cough with rhinorrhea. Vital signs within acceptable limits. Viral swabs negative. I believe it is safer to be discharged home at this time. Diagnosis is URI. She will be placed on a Z-Tan. She was in agreement this plan. I will provide the patient with a prescription for azithromycin. I instructed the patient to follow up with their PCP in the next 1-3 days. I explained that the patient should return to the emergency department if they experience any worsening symptoms. Strict return precautions were discussed with the patient. The patient expressed understanding of these instructions. I answered all questions that the patient had. The patient was discharged home in good condition with their prescriptions and follow up information. Undiagnosed new problem with uncertain prognosis? @ -No Drug Therapy requiring intensive monitoring for toxicity (Heparin, Nitro, Insulin, Cardizem)? @ -No Were any procedures done? @ -No Diagnosis/symptom? @ -URI Acute, or Chronic, or Acute on Chronic? @ -Acute Uncomplicated (without systemic symptoms) or Complicated (systemic symptoms)? @ -Complicated Side effects of treatment? @ -No Exacerbation, Progression, or Severe Exacerbation? @ -No Poses a threat to life or bodily function? How? (Chest pain, [place], [place], pneumonia, PE, COPD, DKA, ARF, appy, cholecystitis, CVA, Diverticulitis, Homicidal, Suicidal, threat to staff... and all critical care pts) @ -No - Lab Data Lab Results 04/11/23 04/11/23 Range/Units 03:57 03:57 Influenza Type A (PCR) Not Detected (Not Detectd) Influenza Type B (PCR) Not Detected (Not Detectd) RSV (PCR) Not Detected (Not Detectd) SARS-CoV-2 (PCR) Not Detected (Not Detectd) Group A Strep (PCR) NOT DETECTED (Not Detectd) Disposition Clinical Impression: URI (upper respiratory infection) Disposition: HOME SELF-CARE Condition: Good Prescriptions: Azithromycin [Zithromax] 250 mg PO DAILY 4 Days #4 tab Is patient prescribed a controlled substance at d/c from ED?: No Referrals: Yimi Mckeon MD [Primary Care Provider] - 1-2 days Time of Disposition: 05:05
[2023-04-11] MEDS: AZITHROMYCIN 500 MG TAB PO STA (05:19)
[2023-04-11 05:53] VITALS: BP 159/85; PULSE 75; RESP 20
== END 2023-04-11 05:23 | disposition home or self-care (01) ==
LOC: EC 03:02
DX: J06.9 Acute upper respiratory infection, unspecified (principal); Z88.0 Allergy status to penicillin; Z88.5 Allergy status to narcotic agent; Z88.8 Allergy status to other drugs, medicaments and biological substances; Z91.018 Allergy to other foods; Z20.822 Contact with and (suspected) exposure to COVID-19
CPT/HCPCS: 87636; 87651; 99283

== ENCOUNTER → 2023-05-18 | Outpatient (CLI) | payer MEDICARE, BC ==
--- NOTE | 2023-05-20 16:28 | CT ---
EXAMINATION TYPE: CT iac wo/w con CT DLP: 300 mGycm, Automated exposure control for dose reduction was used. DATE OF EXAM: 05/18/2023 10:03 AM INDICATION: Patient age:Female; 67 years old; Reason for study: H93.A9 pulsatile tinnitus;. COMPARISON: . None TECHNIQUE: Multiple thin axial images were obtained through the temporal bones and internal auditory canals. Additional coronal reformatted images were obtained. IV contrast was utilized. CT Contrast: Contrast used: 100 cc Isovue-300 none. FINDINGS: Right Temporal Bone: External Ear: The external auditory canal dentures mild cerebral and throughout the canal layering al torres the asencio., The tympanic membrane is present and unremarkable. Middle Ear: The ossicles demonstrate a normal appearance. Prussak's space is clear and the scutum i s intact. There is no evidence of osseous erosion and the tegmen tympani is intact. Inner Ear: Cochlea, vestibule and semi circular canals are unremarkable. No evidence of carotid amanda l dehiscence. Two and a half turns of the cochlea are identified. The vestibular aqueduct is not enl arged. Mastoid Air Cells: The mastoid air cells are clear. The tegmen mastoideum is intact. The aditus ad an trum is clear. Internal Auditory Canal: The internal auditory canal is unremarkable. Left Temporal Bone: External Ear: The external auditory canal is unremarkable, The tympanic membrane is present and unrem arkable. Middle Ear: The ossicles demonstrate a normal appearance. Prussak's space is clear and the scutum i s intact. There is no evidence of osseous erosion and the tegmen tympani is intact. Inner Ear: Cochlea, vestibule and semi circular canals are unremarkable. No evidence of carotid amanda l dehiscence. Two and a half turns of the cochlea are identified. The vestibular aqueduct is not enl arged. Mastoid Air Cells: The mastoid air cells are clear. The tegmen mastoideum is intact. The aditus ad an trum is clear. Internal Auditory Canal: The internal auditory canal is unremarkable. Other: Mild paranasal sinus disease with mucosal thickening and retention cysts in the maxillary sinu ses. Ostiomeatal units are patent. Appropriate course of the internal carotid arteries. Intracranial vasculature were visualized is patent. The venous dural sinuses demonstrate dominant right transverse and hypoplastic left. IMPRESSION: Normal internal auditory canal study. No finding to correlate with pulsatile tinnitus.
== END | disposition home or self-care (01) ==
LOC: RADCTMAIN 08:43
PROVIDERS: ATTEND Internal Medicine
DX: H93.A9 Pulsatile tinnitus, unspecified ear (principal)
CPT/HCPCS: 70482; Q9967

== ENCOUNTER → 2023-12-04 | Outpatient (CLI) | payer MEDICARE, BC ==
--- NOTE | 2023-12-07 08:09 | MM ---
Reason for Exam: Screening (asymptomatic). Last mammogram was performed 2 year(s) and 7 month(s) ago. Patient History: Menarche at age 13. First Full-Term at age 30. Postmenopausal. 1985, Benign Cyst Aspiration on the left side. Maternal aunt had breast cancer, age 68. Risk Values: Maryan 5 year model risk: 1.9%. NCI Lifetime model risk: 6.4%. Prior Study Comparison: 05/26/2017 Bilateral Screening Mammogram, [facility]. 11/08/2019 Bilateral Screening Mammogram, [facility]. 05/09/2021 Bilateral Screening Mammogram, [facility]. Tissue Density: There are scattered areas of fibroglandular density. Findings: Analyzed By CAD. Right breast: There is no suspicious group of microcalcifications or new suspicious mass. Left breast: There is no suspicious group of microcalcifications or new suspicious mass. Overall Assessment: Negative, BI-RAD 1 Management: Screening Mammogram of both breasts in [address] [facility] will attempt to contact patient to return for supplemental views and ultrasound if indicated. Patient should continue monthly self-breast exams. A clinical breast exam by your physician is recommended on an annual basis. This exam should not preclude additional follow-up of suspicious palpable abnormalities. Note on Maryan scores and lifetime risk: 1. A Maryan score greater than 3% is considered moderate risk. If this is the case, consider specialist referral to assess eligibility for a risk reducing agent. 2. If overall lifetime risk for the development of breast cancer is 20% or higher, the patient may qualify for future screening with alternating mammogram and breast MRI. [facility], , 12/07/2023 8:06 AM. Electronically signed and approved by: Rashi Timmons DO
== END | disposition home or self-care (01) ==
LOC: RADMAMWWP 08:41
PROVIDERS: ATTEND Internal Medicine
CPT/HCPCS: 77063; 77067